=== PATIENT | male | born 2000 | race Caucasian/White ===

== ENCOUNTER 2022-06-01 00:05 | Emergency (ER) | payer BC ==
[~2022-06-01] VITALS: Ht 175.3 cm; Wt 59.1 kg
[2022-06-01 00:15] VITALS: TEMP 97.9
[2022-06-01 01:24] VITALS: BP 144/104; PULSE 80
== END 2022-06-01 01:24 | disposition home or self-care (01) ==
LOC: COL.ER 00:05
DX: S61.012A Laceration without foreign body of left thumb without damage to nail, initial encounter (principal); Y93.G1 Activity, food preparation and clean up; W26.0XXA Contact with knife, initial encounter